=== PATIENT | male | born 1995 | race Caucasian/White ===

== ENCOUNTER 2020-10-21 17:48 | Emergency (ER) | payer MEDICAID, OTHER ==
[~2020-10-21] VITALS: Ht 180.3 cm; Wt 109.1 kg
[~2020-10-21 17:48] MED LIST: NO HOME MEDS
[2020-10-21 20:39] VITALS: BP 152/99
== END 2020-10-21 21:15 | disposition home or self-care (01) ==
LOC: ER 17:49
DX: R07.89 Other chest pain (principal); R06.02 Shortness of breath
CPT/HCPCS: 71046; 93005; 99283